=== PATIENT | female | born 1975 | race African-American/Black ===

== ENCOUNTER 2019-03-28 12:49 | Emergency (ER) | payer OTHER ==
[~2019-03-28] VITALS: Ht 165.1 cm; Wt 113.0 kg
[2019-03-28] MEDS ORDERED: SYNTHROID125 MC1 PO (13:04)
[2019-03-28] MEDS ORDERED: BIRTH CONTROL PO (13:05)
[2019-03-28] MEDS ORDERED: PROAIR HFA8.5 GM INH (13:05)
[2019-03-28] MEDS ORDERED: IRON325 PO (13:05)
[2019-03-28] MEDS ORDERED: BREO ELLIPTA 11 EACH INH (13:05)
[2019-03-28 13:13] LABS: URINE BILIRUBIN NEGATIVE (Negative); URINE BLOOD NEGATIVE (Negative); URINE CLARITY CLEAR; URINE COLOR YELLOW; URINE GLUCOSE-RANDOM* NEGATIVE (Negative); URINE KETONES NEGATIVE (Negative); URINE LEUKOCYTES-REFLEX 2+ (Negative); URINE NITRITE-REFLEX NEGATIVE (Negative); URINE PROTEIN (DIPSTICK) NEGATIVE (Negative); URINE SPECIFIC GRAVITY <= 1.005 (1.005-1.035); URINE UROBILINOGEN 0.2 E.U./dl (0.2-1.0)
[2019-03-28 13:20] LABS: BACTERIA-REFLEX >30 Many /HPF (None Seen); CASTS None Seen /LPF (None Seen); CRYSTALS None Seen /LPF (None Seen); SQUAMOUS 4-10 Moderate /LPF (0-3); URINE RBC None Seen /HPF (0-2); URINE WBC-REFLEX 6-15 Few /HPF (0-5)
[2019-03-28 13:37] LABS: BASOPHILS 0.6 % (0.0-2.0); HEMATOCRIT 34.1 % (37.0-47.0); HEMOGLOBIN 11.1 gm/dL (12.0-15.0); LYMPHOCYTES 24.8 % (24.0-44.0); MCH 25.4 pg (26.0-34.0); MCHC 32.6 g/dL (28.0-37.0); MONOCYTES 7.9 % (1.0-8.0); PLATELET COUNT 143 thou/uL (150-400); POLYS 61.7 % (36.0-66.0); RBC 4.37 mil/uL (4.20-5.00); RDW 17.5 % (10.5-14.5); WBC 6.5 thou/uL (4.0-11.0)
[2019-03-28 13:44] LABS: CALCIUM 8.8 mg/dL (8.5-10.1); POTASSIUM 3.4 mmol/L (3.5-5.1)
[2019-03-28 13:50] LABS: ALBUMIN 3.5 g/dL (3.4-5.0); TOTAL BILIRUBIN 0.3 mg/dL (<0.1-1.0); TOTAL PROTEIN 7.8 g/dL (6.4-8.2)
[2019-03-28] MEDS ORDERED: KEFLEX500 M1 PO (14:04)
[2019-03-28 14:08] VITALS: BP 161/102
--- NOTE | 2019-03-28 16:17 | EKG ---
[place] [address] [facility] [place] [address] ELECTROCARDIOGRAM REPORT Name: DELILAH GRACIA Room #: [id number] Admission: 03/28/19 Attend Phys: Discharge: 03/28/19 Date of : 73 Report #: [id number] THIS REPORT FOR: //name// [facility] ED Test Date: 2019-03-28 Test Time: 13:06:16 Pat Name: DELILAH GRACIA Department: Room: Gender: F Casing In Line Feeder: NORIS : 1975 Requested By: Jamin Tarango Order Number: [id number] MD: Brant Dominguez Measurements Intervals [place] Rate: 80 P: 13 RI: 127 QRS: -1 QRSD: 94 T: 5 QT: 384 QTc: 443 Interpretive Statements Sinus rhythm Normal tracing No previous ECG available for comparison Electronically Signed On 03-28-2019 16:16:52 CDT by Brant Dominguez [email or web address] <ELECTRONICALLY SIGNED> By: Brant Dominguez MD, [facility] 03/28/19 1616 1306 1306 Brant Dominguez MD, FACC /EPI
== END 2019-03-28 14:08 | disposition home or self-care (01) ==
LOC: ER 12:49
PROVIDERS: Emergency Medicine
DX: R03.0 Elevated blood-pressure reading, without diagnosis of hypertension (principal)